=== PATIENT | male | born 1980 | race Caucasian/White ===

== ENCOUNTER 2019-07-17 12:09 | Emergency (ER) | payer OTHER, SELFPAY ==
[2019-07-17 12:12] VITALS: BP 129/78; PULSE 85; RESP 18; TEMP 37.1; O2SAT 100
--- NOTE | 2019-07-17 12:56 | ED.URI ---
HPI - URI/Sore Throat General Chief Complaint: Upper Respiratory Infection Stated Complaint: cough Time Seen by Provider: 07/17/19 12:33 Source: patient Mode of arrival: ambulatory Limitations: no limitations History of Present Illness HPI Narrative: Patient presents with chief complaint of concern for upper respiratory infection after having sore throat after using pro-air inhaler a few days ago. Patient states that he remembers having sore throat after using pro-air inhaler in the past which is why he has been prescribed insulin for many years. Patient states he reached out to his primary care and informed them of the change. Patient states that he went to the urgent care and tested negative for strep throat due to the sore throat. He states that his cultures were also -3 days ago. Patient denies fever, chills, nausea, vomiting, diarrhea. Patient states that he coughs and sneezes occasionally for which he takes Claritin. Patient states he has not had any recent travel or known exposure to covid19. Related Data Allergies Allergy/AdvReac Type Severity Reaction Status Date / Time prochlorperazine Allergy Unknown Verified 02/26/13 10:48 sulfa Allergy Mild Swelling Uncoded 08/18/18 04:58 Review of Systems Review of Systems: Narrative: CONSTITUTIONAL: Denies fever, chills, or sweats. EYES: Denies visual changes, redness, or discharge. ENT: Reports dry throat and occasional sneezing denies rhinorrhea, congestion, sore throat, or otalgia. CARDIOVASCULAR: Denies chest pain, palpitations, or edema. RESPIRATORY: Denies cough or dyspnea. GASTROINTESTINAL: Denies abdominal pain, nausea, vomiting, or diarrhea. GENITOURINARY: Denies dysuria or hematuria. SKIN: Denies rash or itching. MUSCULOSKELETAL: Denies back pain, joint pain, or myalgia. NEUROLOGIC: Denies headache, numbness, dizziness, or weakness. PSYCHIATRIC: Denies anxiety or depression. [facility] Family History Family History (Updated 02/27/13 @ 14:23 by DOCTOR UNKNOWN) Other Diabetes mellitus Family history of allergic disorder Social History Social History Smoking status: Never smoker Alcohol intake: never Gender identity (if verbalized by the patient): Male Exam Narrative: Exam Narrative: GENERAL: Well-appearing, well-nourished, and in no acute distress. HEAD: Normocephalic, atraumatic. EYES: PERRLA and EOMI. ENT: Nares mild edema clear, no rhinorrhea or epistaxis. Mucous membranes moist. Oropharynx without tonsillar erythema hypertrophy or exudate or other lesions. Airway patent. Bilateral TMs pearly vigil nonbulging NECK: Supple. No adenopathy or masses. No carotid bruits or JVD CHEST: Clear to auscultation. No respiratory distress. No wheezes rales or rhonchi HEART: Regular rate and rhythm. EXTREMITIES: Normal range of motion. SKIN: Bruise to right forearm. Warm, dry, no rash. NEURO: No focal deficits. Alert and oriented x3. PSYCH: Normal mood and affect. Course Vital Signs Vital signs: Vital Signs Temperature 98.8 F 07/17/19 12:12 Pulse Rate 85 07/17/19 12:12 Respiratory Rate 18 07/17/19 12:12 Blood Pressure 129/78 07/17/19 12:12 Pulse Oximetry 100 07/17/19 12:12 Temperature 98.8 F 07/17/19 12:12 Pulse Rate 85 07/17/19 12:12 Respiratory Rate 18 07/17/19 12:12 Blood Pressure 129/78 07/17/19 12:12 Pulse Oximetry 100 07/17/19 12:12 MDM - URI/Sore Throat MDM Narrative Medical decision making narrative: Patient states that he is contacted his primary care Dr. Phillips office to inform them of the need for change back to Ventolin. Patient states he has been taking Claritin for his allergy symptoms. Patient states he is already tested negative for strep. Patient airway is patent w/o any respiratory distress. Instructed patient to follow-up with his primary care for any additional questions. Discharge Plan Discharge Clinical Impression: Concern about drug reaction without diagnosis Patient Dispositi
[2019-07-17 13:15] VITALS: O2SAT 99
[2019-07-17 14:22] VITALS: BP 130/72; PULSE 86; RESP 18; O2SAT 100
== END 2019-07-17 14:24 | disposition home or self-care (01) ==
PROVIDERS: Emergency Provider Emergency Medicine; PCP Internal Medicine Infectious Disease
DX: J02.9 Acute pharyngitis, unspecified (principal)
CPT/HCPCS: 99281